=== PATIENT | male | born 1995 | race American Indian/Alaskan Native ===

== ENCOUNTER 2021-12-13 15:08 | Emergency (ER) | payer SELFPAY ==
[2021-12-13 16:17] VITALS: BP 126/70
[2021-12-13] MEDS ORDERED: AZITHROMYCIN 1 GM ORAL PWDR PACKET PO ONE (17:20)
[2021-12-13] MEDS ORDERED: LIDOCAINE-MPF (1%) 10 MG/1 ML VIAL 5 ML INFILTRATI ONE (17:20)
--- NOTE | 2021-12-13 17:24 | Emergency Department Report ---
ED Male HPI - General Chief complaint: Urogenital-Male Stated complaint: TESTICAL PAIN Time Seen by Provider: 12/13/21 17:16 Source: patient Mode of arrival: Ambulatory Limitations: No Limitations - History of Present Illness Initial comments: Patient is 26 years old male with no significant past medical history. Patient presented to the ER complaining of penile discharge for the last 3 days. Patient stated that he had sex with a new girl and he believed that he contracted gonorrhea from her. Patient denied any nausea or vomiting. Patient also denies any testicular pain or swelling. Patient describes dysuria. No other complaint. MD Complaint: penile discharge, dysuria -: days(s) (3) discharge. denies: swelling, mass, rash, urinary retention, blood in urine, dysuria, fever, nausea/vomiting, incontinence - Related Data Allergies Allergy/AdvReac Type Severity Reaction Status Date / Time No Known Allergies Allergy Verified 12/13/21 16:17 ED Review of Systems ROS: Stated complaint: TESTICAL PAIN Other details as noted in HPI Comment: All other systems reviewed and negative Constitutional: denies: chills, fever Respiratory: denies: cough, shortness of breath, SOB with exertion Cardiovascular: denies: chest pain, palpitations Gastrointestinal: denies: abdominal pain, nausea, vomiting, diarrhea, constipation, hematemesis Genitourinary: dysuria, discharge. denies: urgency, frequency, hematuria, testicular pain, testicular mass Musculoskeletal: denies: back pain Neurological: denies: headache, weakness, numbness, paresthesias, confusion, abnormal gait ED Physical Exam - General Limitations: No Limitations General appearance: alert, in no apparent distress - Head Head exam: Present: atraumatic, normocephalic, normal inspection - ENT ENT exam: Present: mucous membranes moist - Respiratory Respiratory exam: Present: normal lung sounds bilaterally - Cardiovascular Cardiovascular Exam: Present: regular rate, normal rhythm, normal heart sounds - GI/Abdominal GI/Abdominal exam: Present: soft. Absent: distended, tenderness, guarding, rebound, rigid, normal bowel sounds, organomegaly, mass, bruit, pulsatile mass, hernia - Extremities Exam Extremities exam: Present: normal inspection - Neurological Exam Neurological exam: Present: alert, oriented X3, CN II-XII intact - Psychiatric Psychiatric exam: Present: normal mood - Skin Skin exam: Present: warm, intact, normal color ED Course Vital Signs 12/13/21 16:16 Temperature 98.4 F Pulse Rate 73 Respiratory 18 Rate Blood Pressure 126/70 [Left] O2 Sat by Pulse 100 Oximetry ED Medical Decision Making - Medical Decision Making Patient is 26 years old male with no significant past medical history. Patient presented to the ER complaining of penile discharge for the last 3 days. Patient stated that he had sex with a new girl and he believed that he contracted gonorrhea from her. Patient denied any nausea or vomiting. Patient also denies any testicular pain or swelling. Patient describes dysuria. No other complaint. Patient received Rocephin 500 mg IM and Zithromax 1g p.o. Urinalysis is negative for acute finding. Patient given prescription for doxycycline and advised to follow-up with his primary doctor in the next 2 to 3 days and to return to the ER if he develop any new symptoms. Critical care attestation.: If time is entered above; I have spent that time in minutes in the direct care of this critically ill patient, excluding procedure time. ED Disposition Clinical Impression: Penile discharge, STD (male) Disposition: HOME / SELF CARE / HOMELESS Is pt being admited?: No Condition: Stable Instructions: Gonorrhea, Safe Sex, Urethritis, Adult Referrals: PRIMARY CARE, [Primary Care Provider] - 3-5 Days
[2021-12-13 18:40] LABS: Bilirubin,Urine NEG (Negative); Blood,Urine NEG (Negative); Color,Urine Yellow (Yellow); Mucus,Urine 2+ /HPF; Protein,Urine <15 mg/dL mg/dL (Negative)
== END 2021-12-14 03:40 | disposition home or self-care (01) ==
LOC: ED 15:08
DX: A64 Unspecified sexually transmitted disease (principal)
CPT/HCPCS: 81001; 99283; J0696; J3490

== ENCOUNTER 2021-12-27 13:49 | Emergency (ER) | payer SELFPAY ==
[2021-12-27 14:03] VITALS: BP 136/69
[2021-12-27] MEDS ORDERED: metroNIDAZOLE 500 MG TAB PO STA (15:51)
[2021-12-27] MEDS ORDERED: LIDOCAINE-MPF (1%) 10 MG/1 ML VIAL 5 ML INFILTRATI ONE (15:51)
[2021-12-27] MEDS ORDERED: AZITHROMYCIN 250 MG TAB PO STA (15:51)
--- NOTE | 2021-12-27 16:47 | Emergency Department Report ---
<JULIA REECE - Last Filed: 12/27/21 16:37> ED Male HPI - General Chief complaint: Urogenital-Male Stated complaint: TESTICELS PAIN Time Seen by Provider: 12/27/21 15:34 Source: patient Mode of arrival: Ambulatory Limitations: No Limitations - History of Present Illness MD Complaint: testicle pain, penile discharge (Reports being coming in contact with STD/gonorrhea through sister sexual contact with his female partner presents [facility] department seeking treatment. Reports no hematuria no fever, chills, sweats. No flank pain) Location: penis Radiation: none Severity: mild Consistency: constant Improves with: none Worsens with: none discharge, swelling - Related Data Sexually active: Yes Previous Rx's Medication Instructions Recorded Last Taken Type Doxycycline Hyclate [Doxycycline 100 mg PO Q12HR #14 tab 12/13/21 Unknown Rx Hyclate TAB] DOXYCYCLINE Hyclate [Vibramycin 100 mg PO Q12HR #20 capsule 12/27/21 Unknown Rx CAP] Allergies Allergy/AdvReac Type Severity Reaction Status Date / Time No Known Allergies Allergy Verified 12/27/21 13:58 ED Review of Systems Comment: All other systems reviewed and negative ED Past Medical Hx - Past Medical History Previous Medical History?: No - Surgical History Past Surgical History?: No - Medications Home Medications: Home Medications Medication Instructions Recorded Confirmed Last Taken Type Doxycycline Hyclate [Doxycycline 100 mg PO Q12HR #14 tab 12/13/21 Unknown Rx Hyclate TAB] DOXYCYCLINE Hyclate [Vibramycin 100 mg PO Q12HR #20 capsule 12/27/21 Unknown Rx CAP] ED Physical Exam - General Limitations: No Limitations General appearance: alert, in no apparent distress - Head Head exam: Present: atraumatic, normocephalic, normal inspection - Eye Eye exam: Present: normal appearance, PERRL Pupils: Present: normal accommodation - ENT ENT exam: Present: normal exam, normal orophraynx, mucous membranes moist - Neck Neck exam: Present: normal inspection, full ROM - Respiratory Respiratory exam: Present: normal lung sounds bilaterally. Absent: respiratory distress, wheezes, rales, chest wall tenderness - Cardiovascular Cardiovascular Exam: Present: regular rate, normal rhythm. Absent: systolic murmur, diastolic murmur, rubs, gallop - GI/Abdominal GI/Abdominal exam: Present: soft, normal bowel sounds - Rectal Rectal exam: Present: deferred - exam: Present: testicular tenderness, urethral discharge. Absent: scrotal swelling, vertical testicular lie External exam: Present: normal external exam - Extremities Exam Extremities exam: Present: normal inspection, normal capillary refill - Back Exam Back exam: Present: normal inspection. Absent: CVA tenderness (R), CVA tenderness (L) - Neurological Exam Neurological exam: Present: alert, oriented X3, CN II-XII intact - Psychiatric Psychiatric exam: Present: normal affect, normal mood - Skin Skin exam: Present: warm, dry, intact, normal color. Absent: rash ED Disposition Disposition: HOME / SELF CARE / HOMELESS Is pt being admited?: No Does the pt Need Aspirin: No Condition: Stable Instructions: Gonorrhea Test, Safe Sex, Gonorrhea Prescriptions: DOXYCYCLINE Hyclate [Vibramycin CAP] 100 mg PO Q12HR #20 capsule Referrals: PRIMARY CARE, [Primary Care Provider] - 3-5 Days <ANURAG MIDDLETON - Last Filed: 12/27/21 19:39> ED Review of Systems ROS: Stated complaint: TESTICELS PAIN Other details as noted in HPI ED Course Vital Signs 12/27/21 12/27/21 14:02 16:43 Temperature 97.6 F 97.5 F L Pulse Rate 74 63 Respiratory 20 16 Rate Blood Pressure 136/69 O2 Sat by Pulse 98 97 Oximetry Critical care attestation.: If time is entered above; I have spent that time in minutes in the direct care of this critically ill patient, excluding procedure time.
== END 2021-12-27 16:46 | disposition home or self-care (01) ==
LOC: ED 13:49
DX: R36.9 Urethral discharge, unspecified (principal); N50.819 Testicular pain, unspecified; Z79.899 Other long term (current) drug therapy
CPT/HCPCS: 96372; 99282; J0696; J3490